=== PATIENT | female | born 1970 | race Caucasian/White ===

== ENCOUNTER 2019-10-30 23:11 | Observation (INO) | payer OTHER ==
[~2019-10-30] VITALS: Ht 177.8 cm; Wt 88.5 kg
[2019-10-30] MEDS ORDERED: SODIUM CHLORIDE 0.9% 1000ML 1,000 ML IV STA (23:18)
[2019-10-30] MEDS ORDERED: ASPIRIN 81 MG CHEW TAB PO ONE (23:30)
[2019-10-30 23:37] LABS: BASOPHILS # (AUTO) 0.1 (0.0-0.1); BASOPHILS % 0.5 % (0.0-1.0); EOSINOPHILS # (AUTO) 0.3 (0.0-0.4); EOSINOPHILS % 2.4 % (0.0-6.0); HEMATOCRIT 43.1 % (34.2-44.1); HEMOGLOBIN 14.6 g/dL (12.0-16.0); LYMPHOCYTES # (AUTO) 4.4 (1.0-3.2); LYMPHOCYTES % 34.2 % (18.0-39.1); MEAN CORPUSCULAR HGB CONC 33.9 g/dL (31-35); MEAN CORPUSCULAR VOLUME 85.5 fL (81-99); MONOCYTES % 7.6 % (4.4-11.3); NEUTROPHILS # (AUTO) 7.1 (2.1-6.9); PLATELET COUNT 232 x10e3/uL (140-360); RED BLOOD COUNT 5.04 x10e6/uL (3.6-5.1); RED CELL DISTRIBUTION WIDTH 14.6 % (11.7-14.4)
[2019-10-30 23:57] LABS: ALANINE AMINOTRANSFERASE 22 IU/L (0-55); ALBUMIN 3.8 g/dL (3.5-5.0); ALKALINE PHOSPHATASE 56 IU/L (40-150); ANION GAP 11.7 mmol/L (8-16); BLOOD UREA NITROGEN 14 mg/dL (7-26); BUN/CREATININE RATIO 15 (6-25); CALCIUM 8.6 mg/dL (8.4-10.2); CARBON DIOXIDE 24 mmol/L (22-29); CHLORIDE 107 mmol/L (98-107); CREATINE KINASE 92 IU/L (29-168); CREATININE, SERUM 0.94 mg/dL (0.57-1.11); EST GLOMERULAR FILTRATION RATE > 60 ML/MIN (60-); GLUCOSE 92 mg/dL (74-118); POTASSIUM 3.7 mmol/L (3.5-5.1); SODIUM 139 mmol/L (136-145)
[2019-10-31] VITALS (9 sets, daily range): BP systolic 118–166; BP diastolic 59–89
[2019-10-31] MEDS ORDERED: SODIUM CHLORIDE 0.9% 1000ML 1,000 ML IV STA (00:04)
[2019-10-31 00:07] LABS: BILIRUBIN,URINE NEGATIVE (NEGATIVE); CLARITY,URINE CLEAR (CLEAR); COLOR,URINE YELLOW (YELLOW); KETONES,URINE NEGATIVE (NEGATIVE); LEUKOCYTE ESTERASE ,URINE NEGATIVE (NEGATIVE); NITRITE,URINE NEGATIVE (NEGATIVE); PROTEIN,URINE DIPSTICK NEGATIVE (NEGATIVE); URINE UROBILINOGEN 0.2 mg/dL (0.2 - 1); WBC,URINE (MAN) 0-5 /HPF (0-5)
[2019-10-31 00:08] LABS: RBC,URINE 0-5 /HPF (0-5)
[2019-10-31 00:09] LABS: BACTERIA,URINE FEW /HPF; EPITHELIAL CELLS,URINE RARE /LPF
--- NOTE | 2019-10-31 00:30 | Diagnostic Imaging Report ---
EXAMINATION: CHEST SINGLE (PORTABLE) INDICATION: ^ERMD ORDER ^[id number] ^2350 ^Y COMPARISON: None FINDINGS: AP view TUBES and LINES: None. LUNGS: Lungs are well inflated. There is no evidence of pneumonia or pulmonary edema. PLEURA: No pleural effusion or pneumothorax. HEART AND MEDIASTINUM: The cardiomediastinal silhouette is unremarkable. BONES AND SOFT TISSUES: No acute osseous lesion. Soft tissues are unremarkable. UPPER ABDOMEN: No free air under the diaphragm. IMPRESSION: No acute thoracic abnormality. Signed by: Dr. Aroldo Huang MD on 10/31/2019 12:27 AM
[2019-10-31] MEDS ORDERED: ACETAMINOPHEN 325 MG TAB ONE (00:54)
[2019-10-31] MEDS ORDERED: ASPIRIN 81 MG CHEW TAB PO ONE (01:00)
[2019-10-31] MEDS ORDERED: MORPHINE SULFATE INJ 4 MG/ML INJ 1ML IV PRN (01:15)
[2019-10-31] MEDS ORDERED: ONDANSETRON HCL INJ 2MG/ML 2ML 2 MG/ML VIAL IV PRN (01:15)
[2019-10-31] MEDS ORDERED: IOPAMIDOL 370 MG/ML 200 ML INFUS..BTL INJ ONE (01:18)
[2019-10-31] MEDS ORDERED: SODIUM CHLORIDE 0.9% 50ML 50 ML ONE (01:18)
--- OUTSIDE RECORDS SUMMARY | 2019-10-31 01:20 | XMS REPORT ---
Author Author [facility] Address Unknown Phone Unavailable Care Team Providers Care Glove Operator Name Role Phone THA JENNIFER Unavailable Unavailable Problems This patient has no known problems. Allergies, Adverse Reactions, Alerts This patient has no known allergies or adverse reactions. Medications This patient has no known medications. Results Test Description Test Time Test Comments Text Results Atomic Results Result Comments CHEST SINGLE (PORTABLE) 2019-10-31 00:26:00 [facility] [address] [place] [address] Patient Name: TANA HODGES MR #: [id number] : 1970 Age/Sex: 49/F Req #: [id number] Adm Physician: Ordered by: JENNIFER ALMAZAN DO Report #: [id number] Location: ER Room/Bed: Procedure: [id number] DX/CHEST SINGLE (PORTABLE) Exam Date: 10/30/19 Exam Time: 2349 REPORT STATUS: Signed EXAMINATION: CHEST SINGLE (PORTABLE) INDICATI ON: ERMD ORDER [id number] 2349 Y COMPARISON: None FINDINGS: AP view TUBES and LINES: None. LUNGS: Lungs are well inflated. There is no evidence of pneumonia or pulmonary edema. PLEURA: No pleural effusion or pneumothorax. HEART AND MEDIASTINUM: The cardiomediastinal silhouette is unremarkable. BONES AND SOFT TISSUES: No acute osseous lesion. Soft tissues are unremarkable. UPPER ABDOMEN: No free air under the diaphragm. IMPRESSION: No acute thoracic abnormality. Signed by: Dr. Aroldo Ferraro MD on 10/31/2019 12:27 AM Dictated By: AROLDO FERRARO MD Transcribed By: MARCELA on 10/[birth year]/1926 COPY TO: JENNIFER ALMAZAN DO
--- NOTE | 2019-10-31 01:47 | NUR ---
RECEIVED PATIENT FROM ED AT THIS TIME VIA STRETCHER, AMBULATED TO BED, STEADY GAIT NOTED. PATIENT A&OX3. NO PAIN REPORTED. NO CHEST PAIN REPORTED. PATIENT VERBALIZED SHE WOULD INFORM STAFF IF CHEST PAIN STARTED AGAIN. LUNG SOUNDS CLEAR. BOWEL SOUNDS ACTIVE. LAST BM 10/29. PEDAL PULSES PALPABLE. NO EDEMA NOTED. SKIN INTACT. R AC 20G IV ASYMPTOMATIC, INTACT, AND PATENT. PATIENT ORIENTED TO ROOM AND CALL LIGHT SYSTEM. PATIENT HAS PERSONAL NON-SKID SOCKS ON. NO S&S OF DISTRESS NOTED. BED LOCKED IN LOWEST POSITION, SIDE RAILS UPX2, CALL LIGHT IN REACH.
[2019-10-31] MEDS ORDERED: PNEUMOCOCCAL VACCINE POLYVALENT 23 MCG/0.5 ML VIAL IM SCH (02:02)
--- NOTE | 2019-10-31 02:32 | Diagnostic Imaging Report ---
EXAM: CT Chest WITH contrast (PE Protocol) INDICATION: ^CP COMPARISON: Same day chest x-ray. TECHNIQUE: Chest was scanned utilizing a multidetector helical scanner from the lung apex through the level of the diaphragm after administration of IV contrast. Thin section reconstructions were obtained with special concentration on the pulmonary arteries. Coronal and sagittal reformations were obtained. Dose modulation, iterative reconstruction, and/or weight based adjustment of the mA/kV was utilized to reduce the radiation dose to as low as reasonably achievable. Pulmonary embolism protocol was performed. IV CONTRAST: 100 mL of Omnipaque 370 COMPLICATIONS: None RADIATION DOSE: Total DLP: 664.6 mGy*cm Estimated effective dose: (DLP x 0.014 x size factor) mSv CTDIvol has been reviewed. It is below the limits set by the Radiation Protocol Committee (RPC). FINDINGS: LINES/ TUBES: None. LUNGS AND AIRWAYS: Suboptimal opacification of the pulmonary arteries. Within this context, there is no definite central pulmonary embolism. Limited for evaluation of segmental and subsegmental branches. 1.1 cm right middle lobe nodule. Tiny left lower lobe groundglass nodule (series 3, image 100). Tiny right upper lobe nodule (3/46). Airways are normal. PLEURA: The pleural spaces are clear. HEART AND MEDIASTINUM: The thyroid gland is normal. No mediastinal lymphadenopathy. Prominent bilateral hilar lymph nodes, measuring up to 1.1 cm. Left axillary and subpectoralis lymph nodes, measuring up to 1.1 cm in short axis. The heart is normal in size.. There is no pericardial effusion. . Main pulmonary artery measures 2.2 cm in diameter and the ascending aorta measures 2.9 cm. Left ventricular hypertrophy. UPPER ABDOMEN: 8 mm left hepatic lobe hypodensity is too small to characterize. Otherwise, unremarkable. BONES: Age indeterminate mild compression deformity of T4 vertebral body. SOFT TISSUES: Unremarkable. IMPRESSION: Suboptimal opacification of the pulmonary arteries. Within this context, there is no definite central pulmonary embolism. Limited for evaluation of segmental and subsegmental branches. 1.1 cm right middle lobe lung nodule. Recommend short-term follow-up in 3 months or further evaluation with PET/CT. There are few additional tiny lung nodules as above. Prominent indeterminate bilateral hilar and left axillary/subpectoralis lymph nodes. Attention on follow-up examination. Age indeterminate mild compression deformity of T4 vertebral body. Signed by: Dr. Aroldo uHang MD on 10/31/2019 2:29 AM
[2019-10-31] MEDS: SODIUM CHLORIDE 0.9% 1000ML 1,000 ML IV SCH ×3 (02:38→17:04)
[2019-10-31] MEDS ORDERED: PHENTERMINE H37.5 M1 PO (04:09)
[2019-10-31] MEDS ORDERED: ARMOUR THYROID60 MG PO (04:09)
[2019-10-31 09:51] LABS: CREATINE KINASE 67 IU/L (29-168)
[2019-10-31] MEDS ORDERED: METOPROLOL TART25 MG PO (13:57)
[2019-10-31] MEDS ORDERED: PNEUMOCOCCAL VACCINE POLYVALENT 23 MCG/0.5 ML VIAL ONE (14:13)
[2019-10-31 15:51] LABS: BASOPHILS % 0.5 % (0.0-1.0); EOSINOPHILS # (AUTO) 0.3 (0.0-0.4); EOSINOPHILS % 3.5 % (0.0-6.0); HEMATOCRIT 41.3 % (34.2-44.1); HEMOGLOBIN 13.6 g/dL (12.0-16.0); LYMPHOCYTES % 35.8 % (18.0-39.1); MEAN CORPUSCULAR HEMOGLOBIN 28.8 pg (28-32); MEAN CORPUSCULAR HGB CONC 32.9 g/dL (31-35); MEAN CORPUSCULAR VOLUME 87.3 fL (81-99); MONOCYTES # (AUTO) 0.7 (0.2-0.8); MONOCYTES % 8.7 % (4.4-11.3); NEUTROPHILS # (AUTO) 4.2 (2.1-6.9); NEUTROPHILS % 51.3 % (38.7-80.0); PLATELET COUNT 216 x10e3/uL (140-360); RED BLOOD COUNT 4.73 x10e6/uL (3.6-5.1); RED CELL DISTRIBUTION WIDTH 14.7 % (11.7-14.4)
[2019-10-31 16:02] LABS: ANION GAP 10.2 mmol/L (8-16); BLOOD UREA NITROGEN 10 mg/dL (7-26); BUN/CREATININE RATIO 15 (6-25); CALCIUM 7.9 mg/dL (8.4-10.2); CARBON DIOXIDE 23 mmol/L (22-29); CHLORIDE 111 mmol/L (98-107); CREATININE, SERUM 0.67 mg/dL (0.57-1.11); EST GLOMERULAR FILTRATION RATE > 60 ML/MIN (60-); GLUCOSE 92 mg/dL (74-118); POTASSIUM 4.2 mmol/L (3.5-5.1); SODIUM 140 mmol/L (136-145)
[2019-10-31 18:06] LABS: CREATINE KINASE 59 IU/L (29-168)
--- NOTE | 2019-10-31 19:57 | History and Physical ---
CHIEF COMPLAINT: Palpitations. 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 The patient reports that she was at a democrat, she was drinking some alcohol, noticed that her heart rate was elevated based on her eye watch. She noticed her heart rate continued to rise approximately like in the 150s and came into the ED for further evaluation and management. She has never experienced anything like this before. She denies any chest pain. No nausea, no vomiting, no recent exposure to any sick contacts. No nausea, vomiting, or any recent sickness. No fever. The patient was found to have elevated alcohol level. She states that she only had one drink yesterday, but it seems like she had drank a lot more than one drink based on the alcohol level. The patient is seen and evaluated at bedside on the medical floor. She is currently doing well with no other issues at this time. REVIEW OF SYSTEMS: Pertinent positives elevated heart rate, palpitation. The rest of 14-point review of systems are reviewed with the patient and are negative. ALLERGIES: SULFA AND CODEINE. HOME MEDICATIONS: Thyroid medication, metoprolol, PAST MEDICAL HISTORY: She has hypothyroidism. PAST SURGICAL HISTORY: Reports none. FAMILY HISTORY: Hypertension and diabetes. SOCIAL HISTORY: No drugs, no alcohol, does not smoke. Good social support. PHYSICAL EXAMINATION: VITAL SIGNS: Temperature is 97.5, pulse 85, respiratory rate is 18, blood pressure 156/75, and pulse ox 95% on room air. GENERAL: Not in acute distress. Alert, oriented x3. Cooperative on examination. HEENT: Head normocephalic, atraumatic. Eyes; pupils are reactive to light bilaterally. Extraocular motions intact bilaterally. NECK: Supple. Good range of motion. Throat, no evidence of erythema or exudates in the posterior pharynx. Has poor dentition. PULMONARY: Clear to auscultation bilaterally. No wheezing, rales, or rhonchi. No crackles appreciated. CARDIOVASCULAR: Positive S1 and S2. No murmurs, rubs, or gallops appreciated. ABDOMEN: Soft, nondistended, nontender to palpation. Bowel sounds present. MUSCULOSKELETAL: Strength is 5/5 throughout. No evidence of muscle deficits on examination. No weakness appreciated. NEUROLOGIC: Cranial nerves 2 through 12 grossly intact. No evidence of any neurological deficits on exam. SKIN: Intact. Warm to touch. Good cap refill. PSYCHIATRIC: Normal affect and mood. EXTREMITIES: No edema. Good range of motion throughout. LABORATORY DATA: Labs show white count , hemoglobin 14.6, hematocrit 43, platelets of 232,000. Chemistry; sodium 139, potassium 3.7, chloride 107, bicarb 24, anion gap of 11, BUN is 14, creatinine is 0.94, glucose 92, calcium 8.6, total bilirubin is 0.3, AST 20, ALT 22, alkaline phosphatase 56. CK 92, repeat CK 67. Troponins are negative. BNP 5, total protein 7.7, albumin 3.8. Urinalysis negative. Alcohol level was 142. Microbiology none. IMAGING STUDIES: Chest x-ray shows no acute thoracic abnormality. Chest CT shows suboptimal opacification of the pulmonary arteries. There is no definite central pulmonary embolism seen. There is a 1.1 cm right middle lobe lung nodule, needs outpatient followup in three months. Prominent indeterminate bilateral hilar and left axillary subpectoral lymph nodes. Needs very close followup. Age-indeterminate mild compressive deformity of T4 vertebral body. IMPRESSION: 1. Atypical chest pain. 2. Palpitations found to be sinus tachycardia. 3. Positive serum alcohol level. 4. History of hypothyroidism. PLAN: At this time, the patient is taking some weight loss medications phentermine, which has a high tendency of increasing the heart rate. This is likely the culprit of her sinus tachycardia. At this time, all her cardiac enzymes were found to be negative. EKG shows sinus tachycardia. Cardiology cleared the patient for discharge and ordered some oral metoprolol for her to go home with close followup in 1 week in his office. I recommend holding the phentermine and possibly even discontinuing it at some point. I did recommend holding that and follow up with a soft sugar cutter. She is currently chest pain-free, heart rate is better controlled with a heart rate of 85 at this current moment. She verbalized understanding. Also, it could be her heart rate is elevated due to underlying alcohol intoxication despite she states she only had one drink last night during a democrat. It seems the patient had more than one drink based on the alcohol level. On any rate, her imaging studies were found to be negative. Her labs reviewed and negative. She has been cleared for discharge by Cardiology, which we will go ahead and discharge her to home. Currently, the patient is doing well, back to baseline, had no chest pain. Vital signs were stable, labs reviewed and stable. The patient is seen and evaluated and examined thoroughly on the day of discharge, no other complaints. The patient verbalized understanding and agrees to plan of care to follow up as an outpatient with PCP in 1 week and soft sugar cutter in 1 week time. Once again, this will serve as a history and physical including a discharge summary combined as the patient was admitted and discharged within 24 hours. The patient has been cleared for discharge by Cardiology. The patient is asymptomatic. MD CARLOS ALBERTO Cali/ROBER /[id number]
== END 2019-10-31 18:21 | disposition home or self-care (01) ==
LOC: ER 23:11 → ERHOLD 10-31 01:17 → MED/SURG2 10-31 01:57
PROVIDERS: ADMIT Internal Medicine; ATTEND Internal Medicine
DX: R00.2 Palpitations (principal); R07.89 Other chest pain; E03.9 Hypothyroidism, unspecified; M48.54XA Collapsed vertebra, not elsewhere classified, thoracic region, initial encounter for fracture; R00.0 Tachycardia, unspecified
CPT/HCPCS: 36415 ×2; 71045; 71260; 80048; 80053; 80320; 81001; 82550 ×2; 82553 ×2; 83880; 84443; 84484 ×2; 85025 ×2; 90732; 93005; 93306; 99284; G0378; J7030; Q9967; G0009